=== PATIENT | male | born 1950 | race Hispanic/Latino ===

== ENCOUNTER → 2018-07-08 | Outpatient (CLI) | payer OTHER ==
[~2018-07-08] MED LIST: ALLO300T2 PO; ASPI-1197 PO; ATOR20TA65 PO; DICL100G31 TP; GABA-529 PO; HYDR-4453 PO; METH25VI17 IJ; OMEP40CA37 PO
== END | disposition home or self-care (01) ==
LOC: RAH 10:59
PROVIDERS: ATTEND Physical Medicine & Rehabilitation
DX: M25.552 Pain in left hip (principal)
CPT/HCPCS: 73502

== ENCOUNTER → 2018-09-23 | Outpatient (CLI) | payer OTHER | END | disposition home or self-care (01) | LOC: RAH 11:02 | PROVIDERS: ATTEND Physical Medicine & Rehabilitation | DX: M51.36 Other intervertebral disc degeneration, lumbar region (principal); M48.061 Spinal stenosis, lumbar region without neurogenic claudication | CPT/HCPCS: 72110 ==

== ENCOUNTER → 2018-12-12 | Outpatient (CLI) | payer OTHER | END | disposition home or self-care (01) | LOC: SHCH 14:43 | PROVIDERS: ATTEND Internal Medicine Cardiovascular Disease | DX: I51.7 Cardiomegaly (principal); I50.32 Chronic diastolic (congestive) heart failure | CPT/HCPCS: 93306 ==

== ENCOUNTER 2018-12-31 06:00 | Day surgery (SDC) | payer OTHER ==
[2018-12-27 09:44] VITALS: BP 116/74
[2018-12-27 10:03] LABS: BASOPHILS % (AUTO) 0.3 % (0.0-5.0); EOSINOPHILS % (AUTO) 0.2 % (0.0-8.0); HEMATOCRIT 44.8 % (42-54); LYMPHOCYTES % (AUTO) 11.6 % (21.0-51.0); MEAN CORPUSCULAR HEMOGLOBIN 32.3 pg (27.0-33.0); MEAN CORPUSCULAR HGB CONC 34.6 g/dL (32.0-36.0); MEAN CORPUSCULAR VOLUME 93.3 fL (79-99); MONOCYTES % (AUTO) 7.2 % (3.0-13.0); NEUTROPHILS % (AUTO) 80.7 % (40.0-77.0); PLATELET COUNT (AUTO) 176 K/uL (130-400); RED CELL DISTRIBUTION WIDTH 15.9 % (11.0-15.5); WHITE BLOOD COUNT (AUTO) 11.3 K/uL (4.8-10.8)
[2018-12-27 10:05] LABS: APPEARANCE,URINE Clear (CLEAR); BILIRUBIN,URINE Negative (NEGATIVE); COLOR,URINE Dark Yellow (YELLOW); GLUCOSE, URINE (UA) Negative (NEGATIVE); KETONES,URINE Negative (NEGATIVE); LEUKOCYTE ESTERASE ,URINE Trace (NEGATIVE); NITRATE,URINE Negative (NEGATIVE); OCCULT BLOOD,URINE Negative (NEGATIVE); PROTEIN,URINE Negative (NEGATIVE)
[2018-12-27 10:10] LABS: BACTERIA,URINE Rare /HPF (None Seen); RBC,URINE 0-1 /HPF (0-1); SQUAMOUS EPITHELIAL CELL,UR Rare /HPF (0-2); WBC,URINE 0-1 /HPF (0-1)
[2018-12-27 10:13] LABS: CREATININE 0.9 mg/dL (0.5-1.5); POTASSIUM 3.8 mmol/L (3.5-5.1)
[2018-12-27 10:48] LABS: INR 0.95 (0.85-1.15); PARTIAL THROMBOPLASTIN TIME 27.8 SEC (26.3-35.5)
--- NOTE | 2018-12-30 10:05 | NUR ---
LABS WBC 11.[address] GUEVARA MESSAGE LEFT WITH HARRY. PER [facility] FAX LABS FOR DR GUEVARA TO REVIEW WILL CALL IF ANY FURTHER ORDERS.
--- NOTE | 2018-12-30 11:19 | NUR ---
FOLLOWUP ON ABNORMAL WBC PER DR. GUEVARA OK TO PROCEED WITH PROCEDURE PLANNED. NO FURTHER ORDERS GIVEN
[~2018-12-31] VITALS: Ht 165.1 cm; Wt 83.6 kg
[2018-12-31] VITALS (10 sets, daily range): BP systolic 113–131; BP diastolic 63–77
[~2018-12-31 06:00] MED LIST changes: -ALLO300T2 PO; -ASPI-1197 PO; -ATOR20TA65 PO; -DICL100G31 TP; -METH25VI17 IJ; +NITR0.4T50 SL; +OXYB5TAB PO; +PRAV40TA3 PO; +PRED10TA3 PO; +RANO500T2 PO; +RIVA20TA PO; +[UNRECOGNIZED DRUG - CODE] PO
[2018-12-31] MEDS ORDERED: SODIUM CHLORIDE 0.9% 1000ML 1,000 ML IV ONE (06:19)
[2018-12-31] MEDS ORDERED: IOHEXOL-350 50ML VIAL IV ONE (09:53)
[2018-12-31] MEDS ORDERED: NITROGLYCERIN 5 MG/ML 10 ML VIAL IV ONE (09:53)
[2018-12-31] MEDS ORDERED: LIDOCAINE HCL 2% 20ML ONE (09:54)
[2018-12-31] MEDS ORDERED: IOHEXOL-350 75 ML VIAL IV ONE (09:54)
[2018-12-31] MEDS ORDERED: SODIUM CHLORIDE 0.9% 1000ML 1,000 ML IV SCH (10:51)
== END 2018-12-31 14:50 | disposition home or self-care (01) ==
LOC: DAH 06:00
PROVIDERS: ATTEND Internal Medicine Cardiovascular Disease
DX: I25.118 Atherosclerotic heart disease of native coronary artery with other forms of angina pectoris (principal); Z98.890 Other specified postprocedural states; Z83.3 Family history of diabetes mellitus; Z82.49 Family history of ischemic heart disease and other diseases of the circulatory system; Z79.899 Other long term (current) drug therapy; E78.00 Pure hypercholesterolemia, unspecified; I50.30 Unspecified diastolic (congestive) heart failure; Z68.32 Body mass index [BMI] 32.0-32.9, adult
CPT/HCPCS: 36415; 71045; 80048; 81001; 85025; 85610; 85730; 93005; 93458; A4606; C1760; C1894; J1644; J3490 ×2; J7030; Q9967 ×2

== ENCOUNTER → 2019-07-10 | Outpatient (CLI) | payer OTHER ==
[~2019-07-10] MED LIST changes: +OMEP40CA13 PO; -OMEP40CA37 PO; -OXYB5TAB PO; +OXYB5TAB4 PO
== END | disposition home or self-care (01) ==
LOC: OIH 14:56
PROVIDERS: ATTEND Internal Medicine
DX: I10 Essential (primary) hypertension (principal)
CPT/HCPCS: 71046

== ENCOUNTER → 2020-04-26 | Outpatient (CLI) | payer OTHER ==
[~2020-04-26] MED LIST changes: +OXYB-66 PO; -OXYB5TAB4 PO
== END | disposition home or self-care (01) ==
LOC: OIH 14:28
PROVIDERS: ATTEND Internal Medicine
DX: M19.042 Primary osteoarthritis, left hand (principal); M19.041 Primary osteoarthritis, right hand
CPT/HCPCS: 73130

== ENCOUNTER → 2021-10-05 | Outpatient (CLI) | payer OTHER ==
[~2021-10-05] MED LIST changes: +ALBUTEROL 0.083% 2.5 MG/3 ML INH IH ONE; -OMEP40CA13 PO; +OMEP40CA21 PO
== END | disposition home or self-care (01) ==
LOC: RESP 08:29
PROVIDERS: ATTEND Internal Medicine Cardiovascular Disease
DX: R06.00 Dyspnea, unspecified (principal)
CPT/HCPCS: 94060; 94727; 94729

== ENCOUNTER → 2021-12-07 | Outpatient (CLI) | payer OTHER ==
[~2021-12-07] MED LIST changes: -ALBUTEROL 0.083% 2.5 MG/3 ML INH IH ONE
== END | disposition home or self-care (01) ==
LOC: SHCH 16:02
PROVIDERS: ATTEND Internal Medicine Cardiovascular Disease
DX: R06.00 Dyspnea, unspecified (principal); R55 Syncope and collapse
CPT/HCPCS: 93306

== ENCOUNTER 2022-02-21 14:50 | Emergency (ER) | payer OTHER ==
[~2022-02-21] VITALS: Ht 165.1 cm; Wt 90.7 kg
[2022-02-21] MEDS ORDERED: CLIN-141 PO (16:32)
[2022-02-21] MEDS ORDERED: TRAM50TA2 PO (16:32)
[2022-02-21 16:50] VITALS: BP 115/74
== END 2022-02-21 16:54 | disposition home or self-care (01) ==
LOC: EDH 14:50
DX: L02.811 Cutaneous abscess of head [any part, except face] (principal)

== ENCOUNTER 2023-05-19 12:31 | Emergency (ER) | payer OTHER ==
[~2023-05-19] VITALS: Ht 154.9 cm; Wt 89.8 kg
[~2023-05-19 12:31] MED LIST changes: +ALLO100T PO; +HYDR200T82 PO; -NITR0.4T50 SL; -OXYB-66 PO; -PRAV40TA3 PO; -PRED10TA3 PO; +PRED5TAB PO; -RANO500T2 PO; +ROSU10TA28 PO
[2023-05-19 14:06] LABS: ALBUMIN 3.4 g/dL (3.5-5.0); BILIRUBIN,TOTAL 1.1 mg/dL (0.2-1.0); CREATININE 0.8 mg/dL (0.5-1.5); TOTAL PROTEIN, SERUM 6.6 g/dL (6.0-8.3)
[2023-05-19 14:16] LABS: LYMPHOCYTES % (MANUAL) 15 % (22-44); MAN.DIFF COMMENT-IMPRESSION MANUAL DIFFERENTIAL; MONOCYTES % (MANUAL) 8 % (2-9); REACTIVE LYMPHOCYTES 3 % (0-0); SEGMENTED NEUTROPHILS % 74 % (40-70); TOTAL CELLS COUNTED 100
[2023-05-19 14:20] LABS: HEMATOCRIT 50.6 % (42-54); MEAN CORPUSCULAR HEMOGLOBIN 32.7 pg (27.0-33.0); MEAN CORPUSCULAR HGB CONC 34.8 g/dL (32.0-36.0); MEAN CORPUSCULAR VOLUME 94.1 fL (79-99); PLATELET COUNT (AUTO) 131 K/uL (130-400); RED BLOOD CELL COUNT(AUTO) 5.38 MIL/uL (4.50-6.20); RED CELL DISTRIBUTION WIDTH 14.5 % (11.0-15.5); WHITE BLOOD COUNT (AUTO) 6.6 K/uL (4.8-10.8)
[2023-05-19 14:21] LABS: PLATELET MORPHOLOGY COMMENT ADEQUATE
[2023-05-19 15:55] VITALS: BP 151/73; PULSE 69; RESP 19; O2SAT 99
== END 2023-05-19 16:15 | disposition home or self-care (01) ==
LOC: EDH 12:31
DX: R42 Dizziness and giddiness (principal); I95.1 Orthostatic hypotension; E78.00 Pure hypercholesterolemia, unspecified
CPT/HCPCS: 36415; 70450; 71045; 80053; 84484; 85025; 93005

== ENCOUNTER 2023-10-14 06:35 | Emergency (ER) | payer OTHER ==
[~2023-10-14] VITALS: Ht 162.6 cm; Wt 89.8 kg
[2023-10-14 07:05] LABS: SARS-CoV-2, RNA, NAAT NEGATIVE SARS CoV-2 (NEGATIVE)
[2023-10-14 07:12] LABS: INFLUENZA TYPE A Negative For Type A (NEGATIVE); INFLUENZA TYPE B Negative For Type B (NEGATIVE)
[2023-10-14 08:05] LABS: BASOPHILS # (AUTO) 0.02 K/uL (0.00-0.20); BASOPHILS % (AUTO) 0.3 % (0.0-5.0); EOSINOPHILS # (AUTO) 0.02 K/uL (0.00-0.70); EOSINOPHILS % (AUTO) 0.3 % (0.0-8.0); HEMATOCRIT 41.7 % (42-54); IMMATURE GRANULOCYTE ABSOLUTE 0.13 K/uL (0-1); LYMPHOCYTES # (AUTO) 1.4 K/uL (1.0-4.8); LYMPHOCYTES % (AUTO) 19.4 % (21.0-51.0); MEAN CORPUSCULAR HEMOGLOBIN 29.4 pg (27.0-33.0); MEAN CORPUSCULAR HGB CONC 34.5 g/dL (32.0-36.0); MEAN CORPUSCULAR VOLUME 85.1 fL (79-99); MONOCYTES # (AUTO) 0.8 K/uL (0.1-1.0); MONOCYTES % (AUTO) 10.5 % (3.0-13.0); NEUTROPHILS % (AUTO) 67.8 % (40.0-77.0); PLATELET COUNT (AUTO) 242 K/uL (130-400); RED CELL DISTRIBUTION WIDTH 13.5 % (11.0-15.5); WHITE BLOOD COUNT (AUTO) 7.4 K/uL (4.8-10.8)
[2023-10-14 08:31] LABS: CREATININE 0.7 mg/dL (0.5-1.5); POTASSIUM 3.4 mmol/L (3.5-5.1)
[2023-10-14 08:36] LABS: ALBUMIN 3.4 g/dL (3.5-5.0); BILIRUBIN,TOTAL 0.8 mg/dL (0.2-1.0); TOTAL PROTEIN, SERUM 6.5 g/dL (6.0-8.3)
[2023-10-14 08:47] LABS: B-TYPE NATRIURETIC PEPTIDE 14 pg/mL (0-100)
[2023-10-14 10:29] VITALS: BP 125/90; PULSE 83; RESP 18; O2SAT 97
== END 2023-10-14 10:40 | disposition home or self-care (01) ==
LOC: EDH 06:35
DX: R06.02 Shortness of breath (principal); F41.9 Anxiety disorder, unspecified; E78.00 Pure hypercholesterolemia, unspecified; M19.90 Unspecified osteoarthritis, unspecified site; Z20.822 Contact with and (suspected) exposure to COVID-19; Z79.899 Other long term (current) drug therapy; Z98.890 Other specified postprocedural states
CPT/HCPCS: 36415; 71045; 80053; 83880; 84484; 85025; 87635; 87804; 93005